=== PATIENT | male | born 1985 | race Caucasian/White ===

== ENCOUNTER 2018-09-16 19:02 | Emergency (ER) | payer OTHER ==
[2018-09-16] MEDS ORDERED: KETOROLAC TROMETHAMINE INJ 30 MG/ML VIAL IM ONE (20:16)
[2018-09-16] MEDS ORDERED: ORPHENADRINE CITRATE 30 MG/ML AMP IV ONE ×2 (20:16→20:30)
--- NOTE | 2018-09-16 20:20 | ED.PDOC ---
History of Present Illness - General Chief Complaint: Neck Injury/Pain Time Seen by Provider: 09/16/18 20:11 Source: patient Exam Limitations: no limitations - History of Present Illness Initial Comments: Patient presents with acute on chronic neck pain. He has had a "slipped disc" before and was being treated by a chiropractor until about 5 months ago. He slept in and odd position about 5 days ago and it started his neck pain again. The pain is about at the level of C5-C6, is sharp in nature, constant, worse with movement, better with rest, and radiated down the right arm. He can move his right arm freely but shrugging his right shoulder is painful to his neck. Currently no other complaints. No recent trauma. Has had multiple surgeries related to orthopedic issues. Timing/Duration: 1 week Severity: moderate Improving Factors: rest Worsening Factors: movement Associated Symptoms: denies symptoms Home Medications: Ambulatory Orders Cyclobenzaprine HCl [Flexeril] 10 mg PO TID #20 tab 09/16/18 Ketorolac Tromethamine [Toradol Tabs] 10 mg PO Q6HR #16 tab 09/16/18 Review of Systems - Review of Systems Constitutional: States: no symptoms reported EENTM: States: no symptoms reported Respiratory: States: no symptoms reported Cardiology: States: no symptoms reported Gastrointestinal/Abdominal: States: no symptoms reported Genitourinary: States: no symptoms reported Musculoskeletal: States: see HPI Skin: States: no symptoms reported Neurological: States: see HPI Endocrine: States: no symptoms reported Hematologic/Lymphatic: States: no symptoms reported Physical Exam - Physical Exam General Appearance: Alert Neck: full range of motion - AROM is full but is painful in all directions, tender midline - at C5 Respiratory: lungs clear, normal breath sounds Cardiovascular/Chest: normal peripheral pulses, regular rate, rhythm Gastrointestinal/Abdominal: normal bowel sounds, non tender, soft Extremity: other - Full AROM in all extremities but elevation of the right shoulder is painful. 5/5 strength in all ranges of motion. 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 Care instructions given. E.R. warnings given. Questions were elicited and answered. The patient voiced understanding and agreement with the plan. Departure - Departure Clinical Impression: Degeneration of cervical intervertebral disc, Cervical radiculopathy Disposition: Discharge to Home or Self Care Condition: Good Departure Forms: ED Discharge - Pt. Copy, Patient Portal Self Enrollment Instructions: DI for Neck Pain Diet: resume usual diet Activity: increase activity as tolerated Prescriptions: Ketorolac Tromethamine [Toradol Tabs] 10 mg PO Q6HR #16 tab Cyclobenzaprine HCl [Flexeril] 10 mg PO TID #20 tab Home Medications: Ambulatory Orders Cyclobenzaprine HCl [Flexeril] 10 mg PO TID #20 tab 09/16/18 Ketorolac Tromethamine [Toradol Tabs] 10 mg PO Q6HR #16 tab 18
[2018-09-16] MEDS ORDERED: ORPHENADRINE CITRATE 30 MG/ML AMP IM ONE (20:31)
[2018-09-16 20:48] VITALS: BP 155/106; TEMP 99.3; O2SAT 98
== END 2018-09-16 20:45 | disposition home or self-care (01) ==
LOC: ER 19:02
DX: M50.120 Mid-cervical disc disorder, unspecified level (principal); G89.29 Other chronic pain
CPT/HCPCS: J1885; J2360